=== PATIENT | male | born 1965 | race Caucasian/White ===

== ENCOUNTER 2018-03-25 22:40 | Emergency (ER) | payer MEDICARE, OTHER ==
[~2018-03-25] VITALS: Ht 177.8 cm; Wt 65.0 kg
[~2018-03-25 22:40] MED LIST: CHOL500026 PO; LORA1TAB PO; MULT-1085 PO; SUMA25TA35 PO; TRAZ-218 PO
[2018-03-25] MEDS ORDERED: albuterol 2.5 MG/3 ML nebule NEB STA (22:46)
[2018-03-25 23:07] LABS: BASOPHILS % (AUTO) 0.5 % (0-1); EOSINOPHILS # (AUTO) 0.6 X10'3 (0-0.9); EOSINOPHILS % (AUTO) 6.1 % (0-6); HEMATOCRIT 45.6 % (42.0-52.0); HEMOGLOBIN 15.5 g/dl (14.0-17.9); LYMPHOCYTES # (AUTO) 3.2 X10'3 (1.1-4.8); MEAN CORPUSCULAR HEMOGLOBIN 31.2 PG (27.0-31.0); MEAN CORPUSCULAR HGB CONC 33.9 % (33.0-36.5); MEAN CORPUSCULAR VOLUME 91.9 FL (78-98); MEAN PLATELET VOLUME 7.7 FL (7.4-10.4); MONOCYTES # (AUTO) 0.8 X10'3 (0-0.9); MONOCYTES % (AUTO) 8.3 % (2-12); NEUTROPHILS # (AUTO) 4.4 X10'3 (1.8-7.7); NEUTROPHILS % (AUTO) 49.1 % (42-75); PLATELET COUNT 407 X10'3 (140-440); RED BLOOD COUNT 4.96 X10'6 (4.70-6.10); RED CELL DISTRIBUTION WIDTH 14.3 % (11.5-14.5)
[2018-03-25 23:17] LABS: PARTIAL THROMBOPLASTIN TIME 29 SECONDS (22-32); PROTHROMBIN TIME 10.1 SECONDS (9.0-12.0)
[2018-03-25 23:22] LABS: ALANINE AMINOTRANSFERASE 25 U/L (12-78); ALBUMIN 3.6 G/DL (3.4-5.0); ALKALINE PHOSPHATASE 69 IU/L (46-116); ANION GAP 9 (8-16); ASPARTATE AMINO TRANSFERASE 13 U/L (10-37); BILIRUBIN,TOTAL 0.3 MG/DL (0.1-1.0); BLOOD UREA NITROGEN 17 MG/DL (7-18); BUN/CREATININE RATIO 18.3 (5.4-32.0); CALCIUM 9.1 MG/DL (8.5-10.1); CHLORIDE 104 MMOL/L (99-107); CREATININE 0.93 MG/DL (0.60-1.10); GLUCOSE 103 MG/DL (70-104); SODIUM 138 MMOL/L (135-145); TOTAL CARBON DIOXIDE 24.9 MMOL/L (24-32); TOTAL PROTEIN 7.3 G/DL (6.4-8.2); eGFR 86 ML/MIN
[2018-03-25 23:26] LABS: POTASSIUM 4.1 MMOL/L (3.5-5.1)
[2018-03-25] MEDS ORDERED: predniSONE 20 mg tablet PO ONE (23:55)
[2018-03-25] MEDS ORDERED: ipratropium/albuterol 3ml nebule NEB ONE (23:55)
[2018-03-26 00:17] LABS: D-DIMER 0.28 MG/L FEU (0-0.50)
[2018-03-26] MEDS ORDERED: ipratropium/albuterol 3ml nebule NEB ONE (02:15)
[2018-03-26] MEDS ORDERED: PRED10TA PO (03:24)
[2018-03-26 03:41] VITALS: BP 112/74
== END 2018-03-26 03:43 | disposition home or self-care (01) ==
LOC: ER 22:40
DX: J44.1 Chronic obstructive pulmonary disease with (acute) exacerbation (principal); G89.29 Other chronic pain
CPT/HCPCS: 36415; 71045; 80053; 84484; 85025; 85379; 85610; 85730; 93005; 94640; 99285; J7512

== ENCOUNTER 2018-04-03 21:37 | Emergency (ER) | payer MEDICARE, OTHER ==
[~2018-04-03] VITALS: Ht 177.8 cm; Wt 72.5 kg
[~2018-04-03 21:37] MED LIST changes: +PRED10TA PO
[2018-04-03] MEDS ORDERED: normal saline 1000ML IV soln IVB ONE (22:10)
[2018-04-03] MEDS ORDERED: ondansetron/PF 4mg/2ml inj IV ONE (22:10)
[2018-04-03] MEDS ORDERED: morphine 4 MG/ML inj SYRINge IV PRN (22:10)
[2018-04-03 22:32] LABS: BASOPHILS % (AUTO) 0.4 % (0-1); EOSINOPHILS # (AUTO) 0.1 X10'3 (0-0.9); HEMOGLOBIN 16.8 g/dl (14.0-17.9); LYMPHOCYTES # (AUTO) 2.2 X10'3 (1.1-4.8); LYMPHOCYTES % (AUTO) 25.9 % (21-51); MEAN CORPUSCULAR HEMOGLOBIN 31.2 PG (27.0-31.0); MEAN CORPUSCULAR HGB CONC 34.2 % (33.0-36.5); MEAN CORPUSCULAR VOLUME 91.1 FL (78-98); MEAN PLATELET VOLUME 7.5 FL (7.4-10.4); MONOCYTES # (AUTO) 0.5 X10'3 (0-0.9); MONOCYTES % (AUTO) 5.8 % (2-12); NEUTROPHILS # (AUTO) 5.6 X10'3 (1.8-7.7); NEUTROPHILS % (AUTO) 66.9 % (42-75); PLATELET COUNT 390 X10'3 (140-440); RED BLOOD COUNT 5.37 X10'6 (4.70-6.10); RED CELL DISTRIBUTION WIDTH 14.2 % (11.5-14.5); WHITE BLOOD COUNT 8.4 X10'3 (4.5-11.0)
[2018-04-03 22:40] LABS: CLARITY,URINE CLEAR (Clear); COLOR,URINE YELLOW (Yellow); GLUCOSE, URINE NEGATIVE (Neg); KETONES,URINE NEGATIVE (Neg); LEUKOCYTE ESTERASE ,URINE NEGATIVE (Neg); NITRITES, URINE NEGATIVE (Neg); OCCULT BLOOD,URINE NEGATIVE (Neg); PH,URINE 6.5 (4.8-8.0); PROTEIN,URINE NEGATIVE (Neg); UA COLLECTION TYPE CLN CATCH MIDSTREAM; UROBILINOGEN,URINE 0.2 E.U/dL (0.2-1.0)
[2018-04-03 22:48] LABS: ALANINE AMINOTRANSFERASE 21 U/L (12-78); ALBUMIN 3.8 G/DL (3.4-5.0); ALKALINE PHOSPHATASE 69 IU/L (46-116); ANION GAP 8 (8-16); ASPARTATE AMINO TRANSFERASE 10 U/L (10-37); BILIRUBIN,TOTAL 0.6 MG/DL (0.1-1.0); BLOOD UREA NITROGEN 16 MG/DL (7-18); BUN/CREATININE RATIO 19.3 (5.4-32.0); CALCIUM 9.1 MG/DL (8.5-10.1); CHLORIDE 100 MMOL/L (99-107); CREATININE 0.83 MG/DL (0.60-1.10); GLUCOSE 98 MG/DL (70-104); LIPASE 262 U/L (73-393); POTASSIUM 4.1 MMOL/L (3.5-5.1); SODIUM 135 MMOL/L (135-145); TOTAL CARBON DIOXIDE 27.2 MMOL/L (24-32); TOTAL PROTEIN 7.6 G/DL (6.4-8.2); eGFR > 90 ML/MIN
[2018-04-04] MEDS ORDERED: mag hydrox/Alum hydrox/simeth 30ml oral suspension PO ONE (00:30)
[2018-04-04 00:46] VITALS: BP 118/75
== END 2018-04-04 00:47 | disposition home or self-care (01) ==
LOC: ER 21:38
DX: R10.11 Right upper quadrant pain (principal); R11.10 Vomiting, unspecified; G89.29 Other chronic pain; J44.9 Chronic obstructive pulmonary disease, unspecified; F17.200 Nicotine dependence, unspecified, uncomplicated
CPT/HCPCS: 36415; 74176; 80053; 81003; 83690; 85025; 96361; 96374; 96375; 99285; J2270; J2405; J7030

== ENCOUNTER 2018-06-02 18:46 | Inpatient (IN) | payer MEDICARE, OTHER ==
[~2018-06-02] VITALS: Ht 180.3 cm; Wt 72.7 kg
[2018-06-02 19:21] LABS: BASOPHILS # (AUTO) 0.1 X10'3 (0-0.2); EOSINOPHILS # (AUTO) 0.3 X10'3 (0-0.9); EOSINOPHILS % (AUTO) 2.5 % (0-6); HEMATOCRIT 40.5 % (42.0-52.0); HEMOGLOBIN 13.8 g/dl (14.0-17.9); LYMPHOCYTES # (AUTO) 2.5 X10'3 (1.1-4.8); LYMPHOCYTES % (AUTO) 21.3 % (21-51); MEAN CORPUSCULAR HEMOGLOBIN 31.3 PG (27.0-31.0); MEAN PLATELET VOLUME 7.9 FL (7.4-10.4); MONOCYTES # (AUTO) 0.7 X10'3 (0-0.9); MONOCYTES % (AUTO) 6.1 % (2-12); NEUTROPHILS % (AUTO) 69.1 % (42-75); PLATELET COUNT 312 X10'3 (140-440); RED CELL DISTRIBUTION WIDTH 13.1 % (11.5-14.5); WHITE BLOOD COUNT 11.6 X10'3 (4.5-11.0)
[2018-06-02 19:37] LABS: PROTHROMBIN TIME 10.4 SECONDS (9.0-12.0)
[2018-06-02 19:38] LABS: PARTIAL THROMBOPLASTIN TIME 33 SECONDS (22-32)
[2018-06-02 19:39] LABS: ALANINE AMINOTRANSFERASE 16 U/L (12-78); ALBUMIN 3.1 G/DL (3.4-5.0); ALBUMIN/GLOBULIN RATIO 0.7 (1.1-1.5); ALKALINE PHOSPHATASE 68 IU/L (46-116); ANION GAP 12 (8-16); ASPARTATE AMINO TRANSFERASE 12 U/L (10-37); BILIRUBIN,TOTAL 0.3 MG/DL (0.1-1.0); BLOOD UREA NITROGEN 13 MG/DL (7-18); BUN/CREATININE RATIO 16.9 (5.4-32.0); CALCIUM 8.8 MG/DL (8.5-10.1); CHLORIDE 101 MMOL/L (99-107); CREATININE 0.77 MG/DL (0.60-1.10); GLUCOSE 116 MG/DL (70-104); POTASSIUM 3.4 MMOL/L (3.5-5.1); SODIUM 138 MMOL/L (135-145); TOTAL CARBON DIOXIDE 25.3 MMOL/L (24-32); TOTAL PROTEIN 7.4 G/DL (6.4-8.2); eGFR > 90 ML/MIN
[2018-06-02] MEDS ORDERED: normal saline 1000ML IV soln IV ONE (20:55)
[2018-06-02] MEDS ORDERED: ipratropium/albuterol 3ml nebule NEB ONE (20:55)
[2018-06-02] MEDS ORDERED: azithromycin 250mg tablet PO ONE (20:55)
[2018-06-02] MEDS ORDERED: methylPREDNISolone sod succ 125mg/2ml vial IV ONE (20:55)
[2018-06-02] MEDS ORDERED: CefTRIAXone 2gm/D5W 50ml 50 ML IV ONE (20:55)
[2018-06-02] MEDS ORDERED: ondansetron/PF 4mg/2ml inj IV ONE (21:10)
[2018-06-02] MEDS ORDERED: morphine 4 MG/ML inj SYRINge IV ONE (21:10)
[2018-06-02] MEDS ORDERED: HYDROcodone/acetaminophen 5mg/325mg tablet PO PRN (22:55)
[2018-06-02] MEDS ORDERED: potassium Cl 40MEQ/NS 500ml 500 ML IV PRN ×2 (22:55)
[2018-06-02] MEDS ORDERED: albuterol 2.5 MG/3 ML nebule NEB PRN (22:55)
[2018-06-02] MEDS ORDERED: magnesium hydroxide 30ml (MOM) UD suspension PO PRN (22:55)
[2018-06-02] MEDS ORDERED: ondansetron/PF 4mg/2ml inj IV PRN (22:55)
[2018-06-02] MEDS ORDERED: potassium Cl 20 mEq SR tablet PO PRN ×2 (22:55)
[2018-06-02] MEDS ORDERED: acetaminophen 325mg tablet PO PRN ×2 (22:55)
[2018-06-03] MEDS: HYDROcodone/acetaminophen 10/325mg tab PO PRN ×4 (00:10→22:23)
[2018-06-03] MEDS: methylPREDNISolone sod succ 125mg/2ml vial IV SCH ×3 (00:18→15:03)
[2018-06-03 00:45] VITALS: BP 95/55
[2018-06-03] MEDS: ipratropium/albuterol 3ml nebule NEB PRN ×2 (02:15→22:37)
[2018-06-03] MEDS ORDERED: HYDR-4353 PO ×2 (02:30→02:33)
[2018-06-03] MEDS ORDERED: DULO-31 PO (02:36)
[2018-06-03] MEDS ORDERED: CARV-49 PO (02:39)
[2018-06-03] MEDS ORDERED: MORP-64 PO (02:46)
[2018-06-03] MEDS ORDERED: ALB0.5UD IH (02:50)
[2018-06-03] MEDS ORDERED: FLUT1AER IH (02:53)
[2018-06-03] MEDS ORDERED: morphine 10 MG/5 ML UD oral solution PO PRN (02:55)
[2018-06-03 04:00] VITALS: BP 98/60
[2018-06-03 05:20] LABS: BASOPHILS % (AUTO) 0.2 % (0-1); EOSINOPHILS # (AUTO) 0.1 X10'3 (0-0.9); EOSINOPHILS % (AUTO) 1.2 % (0-6); HEMATOCRIT 37.3 % (42.0-52.0); HEMOGLOBIN 12.6 g/dl (14.0-17.9); LYMPHOCYTES # (AUTO) 0.5 X10'3 (1.1-4.8); LYMPHOCYTES % (AUTO) 9.7 % (21-51); MEAN CORPUSCULAR HEMOGLOBIN 31.1 PG (27.0-31.0); MEAN CORPUSCULAR HGB CONC 33.7 % (33.0-36.5); MEAN CORPUSCULAR VOLUME 92.1 FL (78-98); MONOCYTES # (AUTO) 0.1 X10'3 (0-0.9); MONOCYTES % (AUTO) 0.9 % (2-12); NEUTROPHILS # (AUTO) 4.9 X10'3 (1.8-7.7); PLATELET COUNT 293 X10'3 (140-440); RED BLOOD COUNT 4.05 X10'6 (4.70-6.10); RED CELL DISTRIBUTION WIDTH 13.5 % (11.5-14.5); WHITE BLOOD COUNT 5.6 X10'3 (4.5-11.0)
[2018-06-03 05:37] LABS: ALBUMIN 2.7 G/DL (3.4-5.0); ANION GAP 9 (8-16); BLOOD UREA NITROGEN 16 MG/DL (7-18); BUN/CREATININE RATIO 21.1 (5.4-32.0); CALCIUM 8.3 MG/DL (8.5-10.1); CHLORIDE 103 MMOL/L (99-107); CREATININE 0.76 MG/DL (0.60-1.10); GLUCOSE 172 MG/DL (70-104); POTASSIUM 4.3 MMOL/L (3.5-5.1); SODIUM 139 MMOL/L (135-145); TOTAL CARBON DIOXIDE 27.2 MMOL/L (24-32); eGFR > 90 ML/MIN
[2018-06-03 07:00] VITALS: BP 107/56
[2018-06-03] MEDS: K and/or MAG REPLACEMENT MC SCH (08:00)
[2018-06-03] MEDS: enoxaparin 40mg/0.4ml syringe SUBCUT SCH (08:31)
[2018-06-03 11:34] VITALS: BP 103/63
[2018-06-03] MEDS ORDERED: albuterol 2.5 mg/0.5ml nebule NEB PRN (13:10)
[2018-06-03] MEDS: duloxetine 30mg CAPSULE.DR PO SCH (15:02)
[2018-06-03] MEDS: LORazepam 1 MG tablet PO PRN (17:05)
[2018-06-03] MEDS ORDERED: SUMAtriptan 25 MG tablet PO PRN (17:30)
[2018-06-03] MEDS: mag hydrox/Alum hydrox/simeth 30ml oral suspension PO PRN ×2 (17:55→22:23)
[2018-06-03 19:00] VITALS: BP 108/68
[2018-06-03] MEDS ORDERED: azithromycin/NS 500mg/250ml 250 ML IV SCH (20:00)
[2018-06-03] MEDS: carvedilol 6.25mg tablet PO SCH (21:40)
[2018-06-03] MEDS: Melatonin 3mg tablet PO SCH (21:40)
[2018-06-04] VITALS: BP 96/59
[2018-06-04] MEDS: methylPREDNISolone sod succ 125mg/2ml vial IV SCH ×4 (00:16→23:18)
[2018-06-04 05:26] LABS: BASOPHILS % (AUTO) 0 % (0-1); EOSINOPHILS # (AUTO) 0.2 X10'3 (0-0.9); EOSINOPHILS % (AUTO) 1.2 % (0-6); HEMOGLOBIN 12.4 g/dl (14.0-17.9); LYMPHOCYTES # (AUTO) 1.1 X10'3 (1.1-4.8); LYMPHOCYTES % (AUTO) 8.1 % (21-51); MEAN CORPUSCULAR HEMOGLOBIN 30.9 PG (27.0-31.0); MEAN CORPUSCULAR HGB CONC 33.4 % (33.0-36.5); MEAN CORPUSCULAR VOLUME 92.6 FL (78-98); MEAN PLATELET VOLUME 7.9 FL (7.4-10.4); MONOCYTES # (AUTO) 0.3 X10'3 (0-0.9); MONOCYTES % (AUTO) 2.1 % (2-12); NEUTROPHILS # (AUTO) 11.6 X10'3 (1.8-7.7); NEUTROPHILS % (AUTO) 88.6 % (42-75); PLATELET COUNT 331 X10'3 (140-440); RED CELL DISTRIBUTION WIDTH 13.1 % (11.5-14.5); WHITE BLOOD COUNT 13.1 X10'3 (4.5-11.0)
[2018-06-04 05:52] LABS: ALBUMIN 2.7 G/DL (3.4-5.0); ANION GAP 7 (8-16); BLOOD UREA NITROGEN 21 MG/DL (7-18); BUN/CREATININE RATIO 26.9 (5.4-32.0); CALCIUM 8.3 MG/DL (8.5-10.1); CHLORIDE 106 MMOL/L (99-107); CREATININE 0.78 MG/DL (0.60-1.10); GLUCOSE 156 MG/DL (70-104); POTASSIUM 4.2 MMOL/L (3.5-5.1); SODIUM 141 MMOL/L (135-145); TOTAL CARBON DIOXIDE 28.2 MMOL/L (24-32); eGFR > 90 ML/MIN
[2018-06-04 07:00] VITALS: BP 92/61
[2018-06-04] MEDS: K and/or MAG REPLACEMENT MC SCH (08:00)
[2018-06-04] MEDS: carvedilol 6.25mg tablet PO SCH ×2 (08:00→20:24)
[2018-06-04] MEDS: lactobacillus rhamnosus 10,000 MMU CELLS/CAPSULE PO SCH ×2 (09:03→20:24)
[2018-06-04] MEDS: duloxetine 30mg CAPSULE.DR PO SCH (09:03)
[2018-06-04] MEDS: enoxaparin 40mg/0.4ml syringe SUBCUT SCH (09:04)
[2018-06-04] MEDS: HYDROcodone/acetaminophen 10/325mg tab PO PRN ×3 (09:04→20:28)
[2018-06-04] MEDS: pantoprazole 40mg Tablet.DR PO SCH ×2 (09:04→20:24)
[2018-06-04 09:55] VITALS: BP 107/61
[2018-06-04] MEDS: ipratropium/albuterol 3ml nebule NEB PRN ×2 (10:01→21:49)
[2018-06-04 11:04] VITALS: BP 105/61
[2018-06-04] MEDS: albuterol 2.5 MG/3 ML nebule NEB PRN (13:25)
[2018-06-04] MEDS: LORazepam 1 MG tablet PO PRN (15:14)
[2018-06-04 19:00] VITALS: BP 123/79
[2018-06-04] MEDS: Melatonin 3mg tablet PO SCH (20:24)
[2018-06-05] VITALS: BP 122/59
[2018-06-05 05:26] LABS: BASOPHILS % (AUTO) 0.1 % (0-1); EOSINOPHILS # (AUTO) 0.1 X10'3 (0-0.9); HEMATOCRIT 38.3 % (42.0-52.0); HEMOGLOBIN 12.8 g/dl (14.0-17.9); LYMPHOCYTES # (AUTO) 1.2 X10'3 (1.1-4.8); LYMPHOCYTES % (AUTO) 10.8 % (21-51); MEAN CORPUSCULAR HEMOGLOBIN 30.6 PG (27.0-31.0); MEAN CORPUSCULAR HGB CONC 33.3 % (33.0-36.5); MEAN CORPUSCULAR VOLUME 91.9 FL (78-98); MEAN PLATELET VOLUME 7.9 FL (7.4-10.4); MONOCYTES # (AUTO) 0.4 X10'3 (0-0.9); MONOCYTES % (AUTO) 3.4 % (2-12); NEUTROPHILS # (AUTO) 9.2 X10'3 (1.8-7.7); NEUTROPHILS % (AUTO) 84.7 % (42-75); PLATELET COUNT 349 X10'3 (140-440); RED BLOOD COUNT 4.17 X10'6 (4.70-6.10); RED CELL DISTRIBUTION WIDTH 13.2 % (11.5-14.5); WHITE BLOOD COUNT 10.8 X10'3 (4.5-11.0)
[2018-06-05 05:43] LABS: ALBUMIN 2.6 G/DL (3.4-5.0); ANION GAP 8 (8-16); BLOOD UREA NITROGEN 20 MG/DL (7-18); CALCIUM 8.6 MG/DL (8.5-10.1); CHLORIDE 104 MMOL/L (99-107); CREATININE 0.69 MG/DL (0.60-1.10); GLUCOSE 136 MG/DL (70-104); POTASSIUM 4.4 MMOL/L (3.5-5.1); SODIUM 140 MMOL/L (135-145); eGFR > 90 ML/MIN
[2018-06-05 07:14] VITALS: BP 119/77
[2018-06-05] MEDS: K and/or MAG REPLACEMENT MC SCH (07:33)
[2018-06-05] MEDS: azithromycin 250mg tablet PO SCH (07:39)
[2018-06-05] MEDS: duloxetine 30mg CAPSULE.DR PO SCH (07:39)
[2018-06-05] MEDS: carvedilol 6.25mg tablet PO SCH ×2 (07:40→20:29)
[2018-06-05] MEDS: HYDROcodone/acetaminophen 10/325mg tab PO PRN ×4 (07:40→23:57)
[2018-06-05] MEDS: enoxaparin 40mg/0.4ml syringe SUBCUT SCH (07:40)
[2018-06-05] MEDS: lactobacillus rhamnosus 10,000 MMU CELLS/CAPSULE PO SCH ×2 (07:40→20:30)
[2018-06-05] MEDS: methylPREDNISolone sod succ 125mg/2ml vial IV SCH ×3 (07:40→23:56)
[2018-06-05] MEDS: pantoprazole 40mg Tablet.DR PO SCH ×2 (07:40→20:29)
[2018-06-05] MEDS: albuterol 2.5 MG/3 ML nebule NEB PRN ×2 (07:55→20:55)
[2018-06-05] MEDS: LORazepam 1 MG tablet PO PRN ×2 (10:18→20:30)
[2018-06-05 11:20] VITALS: BP 139/91
[2018-06-05 20:00] VITALS: BP 120/75
[2018-06-05] MEDS: Melatonin 3mg tablet PO SCH (20:30)
[2018-06-06] VITALS: BP 143/88
[2018-06-06] MEDS: mag hydrox/Alum hydrox/simeth 30ml oral suspension PO PRN ×2 (00:01→11:45)
[2018-06-06 05:27] LABS: BASOPHILS % (AUTO) 0.1 % (0-1); EOSINOPHILS # (AUTO) 0.1 X10'3 (0-0.9); HEMATOCRIT 38.5 % (42.0-52.0); LYMPHOCYTES # (AUTO) 1.4 X10'3 (1.1-4.8); LYMPHOCYTES % (AUTO) 14.2 % (21-51); MEAN CORPUSCULAR HEMOGLOBIN 30.9 PG (27.0-31.0); MEAN CORPUSCULAR HGB CONC 33.8 % (33.0-36.5); MEAN CORPUSCULAR VOLUME 91.4 FL (78-98); MEAN PLATELET VOLUME 8.1 FL (7.4-10.4); MONOCYTES # (AUTO) 0.5 X10'3 (0-0.9); MONOCYTES % (AUTO) 4.8 % (2-12); NEUTROPHILS # (AUTO) 8.1 X10'3 (1.8-7.7); NEUTROPHILS % (AUTO) 79.9 % (42-75); PLATELET COUNT 336 X10'3 (140-440); RED BLOOD COUNT 4.21 X10'6 (4.70-6.10); RED CELL DISTRIBUTION WIDTH 12.8 % (11.5-14.5); WHITE BLOOD COUNT 10.1 X10'3 (4.5-11.0)
[2018-06-06] MEDS: HYDROcodone/acetaminophen 10/325mg tab PO PRN ×3 (05:39→19:47)
[2018-06-06 05:52] LABS: ALBUMIN 2.6 G/DL (3.4-5.0); ANION GAP 7 (8-16); BLOOD UREA NITROGEN 23 MG/DL (7-18); BUN/CREATININE RATIO 32.4 (5.4-32.0); CALCIUM 8.2 MG/DL (8.5-10.1); CHLORIDE 103 MMOL/L (99-107); CREATININE 0.71 MG/DL (0.60-1.10); GLUCOSE 135 MG/DL (70-104); POTASSIUM 4.2 MMOL/L (3.5-5.1); SODIUM 140 MMOL/L (135-145); TOTAL CARBON DIOXIDE 30.4 MMOL/L (24-32); eGFR > 90 ML/MIN
[2018-06-06 06:30] VITALS: BP 134/90
[2018-06-06 07:07] VITALS: BP 134/90
[2018-06-06] MEDS: K and/or MAG REPLACEMENT MC SCH (08:00)
[2018-06-06] MEDS: carvedilol 6.25mg tablet PO SCH ×2 (08:59→19:47)
[2018-06-06] MEDS: lactobacillus rhamnosus 10,000 MMU CELLS/CAPSULE PO SCH ×2 (08:59→19:47)
[2018-06-06] MEDS: duloxetine 30mg CAPSULE.DR PO SCH (09:00)
[2018-06-06] MEDS: pantoprazole 40mg Tablet.DR PO SCH ×2 (09:00→19:47)
[2018-06-06] MEDS: azithromycin 250mg tablet PO SCH (09:01)
[2018-06-06] MEDS: methylPREDNISolone sod succ 125mg/2ml vial IV SCH ×3 (09:08→23:56)
[2018-06-06] MEDS: ipratropium/albuterol 3ml nebule NEB PRN (09:29)
[2018-06-06] MEDS: LORazepam 1 MG tablet PO PRN ×2 (11:47→22:35)
[2018-06-06 11:59] VITALS: BP 148/94
[2018-06-06 14:39] VITALS: BP 151/95
[2018-06-06 19:00] VITALS: BP 136/85
[2018-06-06] MEDS: Melatonin 3mg tablet PO SCH (21:06)
[2018-06-07] VITALS: BP 118/62
[2018-06-07 05:50] LABS: BASOPHILS % (AUTO) 0.2 % (0-1); EOSINOPHILS # (AUTO) 0.1 X10'3 (0-0.9); EOSINOPHILS % (AUTO) 0.8 % (0-6); HEMOGLOBIN 13.5 g/dl (14.0-17.9); LYMPHOCYTES # (AUTO) 1.3 X10'3 (1.1-4.8); LYMPHOCYTES % (AUTO) 15.1 % (21-51); MEAN CORPUSCULAR HEMOGLOBIN 30.2 PG (27.0-31.0); MEAN CORPUSCULAR HGB CONC 32.9 % (33.0-36.5); MEAN CORPUSCULAR VOLUME 91.8 FL (78-98); MEAN PLATELET VOLUME 8.1 FL (7.4-10.4); MONOCYTES # (AUTO) 0.4 X10'3 (0-0.9); MONOCYTES % (AUTO) 4.5 % (2-12); NEUTROPHILS # (AUTO) 6.9 X10'3 (1.8-7.7); NEUTROPHILS % (AUTO) 79.4 % (42-75); PLATELET COUNT 363 X10'3 (140-440); RED BLOOD COUNT 4.46 X10'6 (4.70-6.10); RED CELL DISTRIBUTION WIDTH 12.9 % (11.5-14.5); WHITE BLOOD COUNT 8.8 X10'3 (4.5-11.0)
[2018-06-07 05:59] LABS: ALBUMIN 2.6 G/DL (3.4-5.0); ANION GAP 8 (8-16); BLOOD UREA NITROGEN 20 MG/DL (7-18); BUN/CREATININE RATIO 28.6 (5.4-32.0); CALCIUM 8.2 MG/DL (8.5-10.1); CHLORIDE 102 MMOL/L (99-107); GLUCOSE 133 MG/DL (70-104); POTASSIUM 4.3 MMOL/L (3.5-5.1); SODIUM 139 MMOL/L (135-145); TOTAL CARBON DIOXIDE 28.9 MMOL/L (24-32); eGFR > 90 ML/MIN
[2018-06-07 07:22] VITALS: BP 116/63
[2018-06-07] MEDS: K and/or MAG REPLACEMENT MC SCH (08:00)
[2018-06-07] MEDS: duloxetine 30mg CAPSULE.DR PO SCH (08:16)
[2018-06-07] MEDS: carvedilol 6.25mg tablet PO SCH (08:16)
[2018-06-07] MEDS: pantoprazole 40mg Tablet.DR PO SCH (08:16)
[2018-06-07] MEDS: methylPREDNISolone sod succ 125mg/2ml vial IV SCH (08:17)
[2018-06-07] MEDS: azithromycin 250mg tablet PO SCH (08:17)
[2018-06-07] MEDS: lactobacillus rhamnosus 10,000 MMU CELLS/CAPSULE PO SCH (08:17)
[2018-06-07] MEDS ORDERED: PRED10TA PO (12:10)
[2018-06-07] MEDS ORDERED: AZI25OT PO (12:10)
[2018-06-07] MEDS ORDERED: ATI0.5T PO (12:10)
[2018-06-07] MEDS: HYDROcodone/acetaminophen 10/325mg tab PO PRN (12:28)
== END 2018-06-07 13:30 | disposition home or self-care (01) | DRG 193 ==
LOC: ER 18:46 → ED HOLD 22:53 → SUR 3N 06-03 00:30
PROVIDERS: ADMIT Hospitalist; ATTEND Family Medicine
PROC: 5A09357 Assistance with Respiratory Ventilation, Less than 24 Consecutive Hours, Continuous Positive Airway Pressure (ICD-10-PCS; principal; 2018-06-03)
PROC: 5A09357 Assistance with Respiratory Ventilation, Less than 24 Consecutive Hours, Continuous Positive Airway Pressure (ICD-10-PCS; 2018-06-04)
PROC: 5A09357 Assistance with Respiratory Ventilation, Less than 24 Consecutive Hours, Continuous Positive Airway Pressure (ICD-10-PCS; 2018-06-05)
PROC: 5A09357 Assistance with Respiratory Ventilation, Less than 24 Consecutive Hours, Continuous Positive Airway Pressure (ICD-10-PCS; 2018-06-06)
PROC: 5A09357 Assistance with Respiratory Ventilation, Less than 24 Consecutive Hours, Continuous Positive Airway Pressure (ICD-10-PCS; 2018-06-07)
DX: J18.1 Lobar pneumonia, unspecified organism (principal); J96.01 Acute respiratory failure with hypoxia; J44.0 Chronic obstructive pulmonary disease with (acute) lower respiratory infection; B44.81 Allergic bronchopulmonary aspergillosis; J44.1 Chronic obstructive pulmonary disease with (acute) exacerbation; E44.1 Mild protein-calorie malnutrition; D64.9 Anemia, unspecified; R07.82 Intercostal pain; E87.6 Hypokalemia; G89.29 Other chronic pain; F41.9 Anxiety disorder, unspecified; T38.0X5A Adverse effect of glucocorticoids and synthetic analogues, initial encounter; F15.959 Other stimulant use, unspecified with stimulant-induced psychotic disorder, unspecified; F17.200 Nicotine dependence, unspecified, uncomplicated; Z99.81 Dependence on supplemental oxygen; Z79.899 Other long term (current) drug therapy; Z86.2 Personal history of diseases of the blood and blood-forming organs and certain disorders involving the immune mechanism; Z71.6 Tobacco abuse counseling; Y92.89 Other specified places as the place of occurrence of the external cause; Z68.22 Body mass index [BMI] 22.0-22.9, adult
CPT/HCPCS: 36415; 71045; 80048; 80053; 83605; 84145; 84484; 85025; 85610; 85730; 87040; 87070; 93005; 94640; 94660; 94667; 94668; 94760; 96365; 96375; 99285; G0378; J0456; J0696; J1650; J2270; J2405; J2930; J7611

== ENCOUNTER 2018-06-14 14:16 | Emergency (ER) | payer MEDICARE, OTHER ==
[~2018-06-14] VITALS: Ht 180.3 cm; Wt 74.0 kg
[~2018-06-14 14:16] MED LIST changes: +ALB0.5UD IH; +ATI0.5T PO; +AZI25OT PO; +CARV-49 PO; +DULO-31 PO; +FLUT1AER IH; +HYDR-4353 PO; -LORA1TAB PO; +MORP-64 PO; -TRAZ-218 PO
[2018-06-14 14:23] VITALS: BP 121/90
[2018-06-14 15:12] LABS: BASOPHILS % (AUTO) 0.2 % (0-1); EOSINOPHILS # (AUTO) 0.2 X10'3 (0-0.9); EOSINOPHILS % (AUTO) 2.1 % (0-6); HEMATOCRIT 45.3 % (42.0-52.0); HEMOGLOBIN 15.2 g/dl (14.0-17.9); LYMPHOCYTES # (AUTO) 2.2 X10'3 (1.1-4.8); MEAN CORPUSCULAR HEMOGLOBIN 30.7 PG (27.0-31.0); MEAN CORPUSCULAR HGB CONC 33.5 % (33.0-36.5); MEAN CORPUSCULAR VOLUME 91.8 FL (78-98); MONOCYTES # (AUTO) 0.5 X10'3 (0-0.9); MONOCYTES % (AUTO) 4.6 % (2-12); NEUTROPHILS # (AUTO) 8.4 X10'3 (1.8-7.7); NEUTROPHILS % (AUTO) 74.1 % (42-75); PLATELET COUNT 392 X10'3 (140-440); RED BLOOD COUNT 4.94 X10'6 (4.70-6.10); RED CELL DISTRIBUTION WIDTH 14.1 % (11.5-14.5); WHITE BLOOD COUNT 11.3 X10'3 (4.5-11.0)
[2018-06-14 15:18] LABS: CLARITY,URINE CLEAR (Clear); COLOR,URINE YELLOW (Yellow); GLUCOSE, URINE NEGATIVE (Neg); KETONES,URINE NEGATIVE (Neg); LEUKOCYTE ESTERASE ,URINE NEGATIVE (Neg); NITRITES, URINE NEGATIVE (Neg); OCCULT BLOOD,URINE NEGATIVE (Neg); PH,URINE 6.5 (4.8-8.0); PROTEIN,URINE NEGATIVE (Neg); UROBILINOGEN,URINE 0.2 E.U/dL (0.2-1.0)
[2018-06-14 15:23] LABS: PROTHROMBIN TIME 9.8 SECONDS (9.0-12.0)
[2018-06-14 15:28] LABS: ALANINE AMINOTRANSFERASE 45 U/L (12-78); ALBUMIN 3.4 G/DL (3.4-5.0); ALBUMIN/GLOBULIN RATIO 0.9 (1.1-1.5); ALKALINE PHOSPHATASE 75 IU/L (46-116); ANION GAP 7 (8-16); ASPARTATE AMINO TRANSFERASE 12 U/L (10-37); BILIRUBIN,TOTAL 0.3 MG/DL (0.1-1.0); BLOOD UREA NITROGEN 18 MG/DL (7-18); BUN/CREATININE RATIO 22.5 (5.4-32.0); CHLORIDE 102 MMOL/L (99-107); GLUCOSE 109 MG/DL (70-104); LIPASE 319 U/L (73-393); POTASSIUM 4.5 MMOL/L (3.5-5.1); SODIUM 137 MMOL/L (135-145); TOTAL CARBON DIOXIDE 28.2 MMOL/L (24-32); eGFR > 90 ML/MIN
[2018-06-14 15:31] LABS: UA COLLECTION TYPE VOIDED
[2018-06-14] MEDS ORDERED: ketorolac trometh. 30mg/ml inj. IM ONE (16:30)
== END 2018-06-14 17:31 | disposition home or self-care (01) ==
LOC: ER 14:16
DX: K59.00 Constipation, unspecified (principal); G89.29 Other chronic pain; M54.5 Low back pain; J44.9 Chronic obstructive pulmonary disease, unspecified; Z79.2 Long term (current) use of antibiotics; Z79.899 Other long term (current) drug therapy
CPT/HCPCS: 36415; 74018; 80053; 81003; 83690; 85025; 85610; 96372; 99284; J1885

== ENCOUNTER 2018-09-25 14:00 | Outpatient (CLI) | payer OTHER, MEDICARE | END 2018-09-25 23:59 | disposition home or self-care (01) | LOC: RAD 14:00 | PROVIDERS: ATTEND Preventive Medicine Aerospace Medicine | DX: R13.14 Dysphagia, pharyngoesophageal phase (principal); K21.9 Gastro-esophageal reflux disease without esophagitis; J44.9 Chronic obstructive pulmonary disease, unspecified; I10 Essential (primary) hypertension; Z79.899 Other long term (current) drug therapy | CPT/HCPCS: 74230 ==

== ENCOUNTER 2018-10-13 16:57 | Inpatient (IN) | payer MEDICARE, OTHER ==
[~2018-10-13] VITALS: Ht 180.3 cm; Wt 75.0 kg
--- NOTE | 2018-10-13 17:10 | NUR ---
BIB EMS WITH C/O SOB TODAY. HX PULMONARY LANGERHANS, COPD, SMOKER. O2 IN USE WITH SATS 97%. CHEST HAS SCATTERED WHEEZES NOTED ON AUSC. PLACED ON MONITOR, DISPLAYING SINUS TACH.
[2018-10-13] MEDS ORDERED: CefTRIAXone 2gm/D5W 50ml 50 ML IV ONE (17:50)
[2018-10-13] MEDS ORDERED: ipratropium/albuterol 3ml nebule NEB ONE (17:50)
[2018-10-13] MEDS ORDERED: normal saline 1000ML IV soln IV ONE (17:50)
[2018-10-13] MEDS ORDERED: azithromycin 250mg tablet PO ONE (17:50)
[2018-10-13 18:10] LABS: BASOPHILS % (AUTO) 0.2 % (0-1); EOSINOPHILS # (AUTO) 0.7 X10'3 (0-0.9); EOSINOPHILS % (AUTO) 6.1 % (0-6); HEMATOCRIT 39.9 % (42.0-52.0); HEMOGLOBIN 13.7 g/dl (14.0-17.9); LYMPHOCYTES # (AUTO) 1.4 X10'3 (1.1-4.8); LYMPHOCYTES % (AUTO) 13.1 % (21-51); MEAN CORPUSCULAR HEMOGLOBIN 31.1 PG (27.0-31.0); MEAN CORPUSCULAR HGB CONC 34.4 g/dL (33.0-36.5); MEAN CORPUSCULAR VOLUME 90.5 FL (78-98); MEAN PLATELET VOLUME 7.7 FL (7.4-10.4); MONOCYTES # (AUTO) 0.8 X10'3 (0-0.9); MONOCYTES % (AUTO) 7.3 % (2-12); NEUTROPHILS # (AUTO) 7.9 X10'3 (1.8-7.7); NEUTROPHILS % (AUTO) 73.3 % (42-75); PLATELET COUNT 235 X10'3 (140-440); RED BLOOD COUNT 4.41 X10'6 (4.70-6.10); RED CELL DISTRIBUTION WIDTH 13.3 % (11.5-14.5); WHITE BLOOD COUNT 10.8 X10'3 (4.5-11.0)
[2018-10-13 18:24] LABS: ALANINE AMINOTRANSFERASE 24 U/L (12-78); ALBUMIN 3.4 G/DL (3.4-5.0); ALBUMIN/GLOBULIN RATIO 0.9 (1.1-1.5); ALKALINE PHOSPHATASE 62 IU/L (46-116); ANION GAP 7 (8-16); ASPARTATE AMINO TRANSFERASE 23 U/L (10-37); BILIRUBIN,TOTAL 0.4 MG/DL (0.1-1.0); BLOOD UREA NITROGEN 17 MG/DL (7-18); BUN/CREATININE RATIO 23.9 (5.4-32.0); CALCIUM 9.3 MG/DL (8.5-10.1); CHLORIDE 100 MMOL/L (99-107); CREATININE 0.71 MG/DL (0.60-1.10); GLUCOSE 117 MG/DL (70-104); SODIUM 135 MMOL/L (135-145); TOTAL CARBON DIOXIDE 28.2 MMOL/L (24-32); TOTAL PROTEIN 7.2 G/DL (6.4-8.2); eGFR > 90 ML/MIN
[2018-10-13] MEDS ORDERED: ondansetron/PF 4mg/2ml inj IV ONE (18:25)
[2018-10-13 18:31] LABS: MAGNESIUM 1.9 MG/DL (1.5-2.4)
[2018-10-13] MEDS ORDERED: dexamethasone sod phosphate 10mg/ml inj IV STA (18:31)
[2018-10-13 18:33] LABS: D-DIMER 0.38 MG/L FEU (0-0.50); PARTIAL THROMBOPLASTIN TIME 35 SECONDS (22-32)
[2018-10-13 19:06] LABS: ABG BASE EXCESS 0.9 mmol/L (-2.0-3.0); ABG PH (T) 7.398 (7.350-7.450); ABG PO2 (T) 114.1 mmHg (83-108); ALLEN'S TEST Positive; FCOHb 0.9 % (0.5-1.5); FLOW 6 L/min; FMetHb 0.1 % (0.3-1.12); PATIENT TEMPERATURE 36.7
[2018-10-13] MEDS ORDERED: acetaminophen 325mg tablet PO PRN ×2 (20:55)
[2018-10-13] MEDS ORDERED: HYDROcodone/acetaminophen 5mg/325mg tablet PO PRN (20:55)
[2018-10-13] MEDS ORDERED: ondansetron/PF 4mg/2ml inj IV PRN (20:55)
[2018-10-13] MEDS ORDERED: albuterol 2.5 MG/3 ML nebule NEB PRN (20:55)
[2018-10-13] MEDS ORDERED: magnesium hydroxide 30ml (MOM) UD suspension PO PRN (20:55)
[2018-10-13] MEDS ORDERED: HYDROcodone/acetaminophen 10/325mg tab PO PRN (20:55)
[2018-10-13] MEDS ORDERED: mag hydrox/Alum hydrox/simeth 30ml oral suspension PO PRN (20:55)
[2018-10-13] MEDS ORDERED: ipratropium/albuterol 3ml nebule NEB SCH (21:00)
[2018-10-13] MEDS ORDERED: methylPREDNISolone sod succ 125mg/2ml vial IV SCH (21:00)
[2018-10-13] MEDS ORDERED: temazepam 15mg capsule PO PRN (21:00)
[2018-10-13] MEDS ORDERED: LORazepam 0.5 MG tablet PO PRN (21:05)
[2018-10-13] MEDS ORDERED: CHOLECALCIFEROL PO SCH (21:05)
[2018-10-13 21:19] VITALS: BP 134/78
[2018-10-13] MEDS ORDERED: ALBU18HF2 IH (23:03)
[2018-10-14] MEDS ORDERED: albuterol 2.5 MG/3 ML nebule NEB SCH (03:00)
[2018-10-14] MEDS ORDERED: multivitamins, therapeutics tablet PO SCH (08:00)
[2018-10-14] MEDS ORDERED: enoxaparin 40mg/0.4ml syringe SUBCUT SCH (08:00)
[2018-10-14] MEDS ORDERED: BUDESONIDE 0.25 MG/2 ML AMPUL.NEB IH SCH (08:00)
[2018-10-14] MEDS ORDERED: duloxetine 30mg CAPSULE.DR PO SCH (08:00)
[2018-10-14] MEDS ORDERED: morphine ER 15mg tablet PO SCH (08:00)
[2018-10-14] MEDS ORDERED: azithromycin 250mg tablet PO SCH (08:00)
[2018-10-14] MEDS ORDERED: carvedilol 6.25mg tablet PO SCH (08:00)
[2018-10-14] MEDS ORDERED: SUMAtriptan 25 MG tablet PO PRN (08:00)
[2018-10-16] MEDS ORDERED: IPRA3AMP31 NEB (17:16)
[2018-10-16] MEDS ORDERED: ALBU8HFA PO (17:20)
[2018-10-16] MEDS ORDERED: FLUT200B3 IH (17:25)
[2018-10-16] MEDS ORDERED: HYDR-3686 PO (17:28)
[2018-10-16] MEDS ORDERED: LOSA25TA41 PO (17:29)
[2018-10-18] MEDS ORDERED: AZI25OT PO (08:59)
[2018-10-18] MEDS ORDERED: DOXY-224 PO (08:59)
== END 2018-10-13 23:04 | disposition left against medical advice (07) | DRG 202 ==
LOC: ER 16:57 → ED HOLD 20:55 → CANBEDREQ 23:28
PROVIDERS: ADMIT Hospitalist; ATTEND Hospitalist
DX: J20.9 Acute bronchitis, unspecified (principal); J44.0 Chronic obstructive pulmonary disease with (acute) lower respiratory infection; J44.1 Chronic obstructive pulmonary disease with (acute) exacerbation; F17.200 Nicotine dependence, unspecified, uncomplicated; Z53.21 Procedure and treatment not carried out due to patient leaving prior to being seen by health care provider; R09.02 Hypoxemia; G89.29 Other chronic pain; R06.03 Acute respiratory distress; Z99.81 Dependence on supplemental oxygen
CPT/HCPCS: 36415; 36600; 71045; 80053; 82803; 83605; 83735; 83880; 84145; 84484; 85018; 85025; 85379; 85610; 85730; 87040; 87502; 87503; 93005; 94640; 94760; 96365; 96375; 99291; G0378; J0696; J1100; J2405; J2930

== ENCOUNTER 2018-10-16 16:09 | Inpatient (IN) | payer MEDICARE, OTHER | END 2018-10-18 11:20 | disposition short-term general hospital (02) | LOC: ER 16:09 → ED HOLD 20:23 → PCU 3S 21:28 | DX: J96.90 Respiratory failure, unspecified, unspecified whether with hypoxia or hypercapnia (principal); J44.1 Chronic obstructive pulmonary disease with (acute) exacerbation ==